=== PATIENT | female | born 1995 | race Caucasian/White ===

== ENCOUNTER → 2016-10-25 | Outpatient (CLI) | payer OTHER ==
--- NOTE | 2016-10-25 15:48 | DIAGNOSTIC IMAGING REPORT ---
MRI OF THE LUMBAR SPINE WITHOUT CONTRAST CLINICAL HISTORY: Persistent low back pain radiating down left lower extremity. Remote tailbone fracture. COMPARISON STUDY: No previous studies for comparison. TECHNIQUE: Utilizing a 1.5 Belen magnet and dedicated coil, multiplanar, multiecho imaging of the lumbar spine was performed without IV contrast. FINDINGS: For purposes of numbering on this exam, the L5-S1 disc space is assigned to axial image 27 of 30. Alignment of lumbar spine is anatomic. The conus terminates at the L1-L2 level. There is no intracanalicular mass or fluid collection. A 8 mm cystic abnormality along the posterior aspect of the left L4-L5 facet joint is of doubtful significance. Paravertebral soft tissues are otherwise normal. L1-2: The central canal and neural foramen are patent. L2-3: The central canal and neural foramen are patent L3-4: The central canal and neural foramen are patent. L4-5: The central canal and neural foramen are patent L5-S1: The central canal and neural foramen are patent. IMPRESSION: 1. Unremarkable MRI of the lumbar spine. No disc herniation. 2. Patent central canal and neural foramen. 3. No intracanalicular mass or fluid collection. Electronically signed by: Mariusz Liang M.D. 10/25/2016 3:47 PM Dictated Date/Time: 10/25/2016 3:42 PM
== END | disposition home or self-care (01) ==
LOC: C.MRI 14:51
PROVIDERS: ATTEND Internal Medicine
DX: M54.5 Low back pain (principal)

== ENCOUNTER 2017-10-17 22:40 | Emergency (ER) | payer OTHER ==
[~2017-10-17] VITALS: Ht 157.5 cm; Wt 63.6 kg
[2017-10-17 22:42] VITALS: Ht 157.5 cm; Wt 63.6 kg
[2017-10-17] MEDS ORDERED: KETOROLAC TROMETHAMINE 30 MG/ML VIAL IV STA (23:10)
[2017-10-17 23:52] LABS: ALBUMIN 4.1 gm/dl (3.4-5.0); ALT/SGPT 29 U/L (12-78); BLOOD UREA NITROGEN 15 mg/dl (7-18); CALCIUM 9.6 mg/dl (8.5-10.1); CARBON DIOXIDE 24 mmol/L (21-32); CREATININE 0.74 mg/dl (0.60-1.20); GLUCOSE 90 mg/dl (70-99); POTASSIUM 3.7 mmol/L (3.5-5.1); SODIUM 137 mmol/L (136-145)
[2017-10-17 23:55] LABS: ALKALINE PHOSPHATASE 97 U/L (45-117); AST/SGOT 17 U/L (15-37); TOTAL PROTEIN 8.4 gm/dl (6.4-8.2)
[2017-10-18 00:01] LABS: HEMATOCRIT 40.5 % (37-47); HEMOGLOBIN 13.4 g/dL (12.0-16.0); MEAN CELL VOLUME 84.7 fL (80-100); MEAN CORPUSCULAR HGB CONC 33.1 g/dl (32-36); RED CELL DISTRIBUTION WIDTH SD 40.2 fL (36.4-46.3); WHITE BLOOD COUNT 9.54 K/uL (4.8-10.8)
[2017-10-18] MEDS ORDERED: MONT1TAB5 PO (00:15)
[2017-10-18] MEDS ORDERED: VNTHFA/IN INH (00:15)
[2017-10-18] MEDS ORDERED: FLUO40CA8 PO (00:18)
[2017-10-18 00:25] LABS: BASO % 0.3 %; BASO ABS # 0.03 K/uL (0-0.2); EOS % 1.1 %; IG# 0.03 K/uL (0.00-0.02); LYMPH % 20.1 %; LYMPH ABS # 1.84 K/uL (1.2-3.4); MONO % 11.3 %; MONO ABS # 1.04 K/uL (0.11-0.59); NEUT % 66.9 %; NEUT ABS # 6.13 K/uL (1.4-6.5)
[2017-10-18 01:26] VITALS: TEMP 36.9
[2017-10-18 01:31] LABS: PLATELET COUNT 204 K/uL (130-400)
[2017-10-18 02:24] VITALS: BP 118/76; PULSE 76; O2SAT 98
--- NOTE | 2017-10-18 07:13 | EMERGENCY ROOM VISIT NOTE ---
History First contact with patient: 23:05 Chief Complaint: ABDOMINAL PAIN Stated Complaint: SEVERE CRAMPING,AB PAIN,POSS IUD Nursing Triage Summary: Patient states "I have really bad abdominal pain or maybe uterine pain. I got an IUD put in 2 weeks ago and they told me to expect some cramping but I don't know if this is from that. I've been bleeding like a period for a couple days too. I had blood in my urine a couple days ago too." History of Present Illness The patient is a 22 year old female who presents to the Emergency Room with complaints of spotting and cramping for the past week who an IUD placed 2 weeks ago by [employer] [facility]. She has had no prior pregnancies. Patient is sexually active. Patient denies risk for STI's, chest pain, dyspnea, back pain , flank pain, urinary symptoms, vaginal odor. She has had intercourse since the IUD was placed. Review of Systems An 10 system review of systems was completed with positives and pertinent negatives listed in the HPI. Past Medical/Surgical History Asthma, anxiety Social History Smoking Status: Never Smoker Alcohol Use: occasionally Drug Use: none Marital Status: in relationship Occupation Status: [employer] student Current/Historical Medications Scheduled Fluoxetine Hcl (Prozac), 1 CAP PO WK Montelukast Sodium (Montelukast Sodium), 1 TAB PO DAILY Scheduled PRN Albuterol Hfa (Ventolin Hfa), 2 PUFFS INH Q6H PRN for SOB/Wheezing Physical Exam Vital Signs Date Time Temp Pulse Resp B/P (MAP) Pulse Ox O2 Delivery O2 Flow Rate FiO2 10/18/17 02:24 76 18 118/76 98 10/18/17 01:26 36.9 87 18 110/65 99 Room Air 10/17/17 23:20 Room Air 10/17/17 22:42 36.7 104 18 126/73 97 Room Air Physical Exam VITALS: Vitals are noted on the nurse's note and reviewed by myself. Vital signs stable. GENERAL: Pleasant female, in no acute distress, nondiaphoretic, well-developed well-nourished. SKIN: Capillary reflex less than 2 seconds. HEENT: Normocephalic. PERRLA. EOMI. Nares patent. Mucous membranes moist. Neck is supple without nuchal rigidity. HEART: Regular rate and rhythm without murmurs gallops or rubs. LUNGS: Clear to auscultation bilaterally without wheezes, rales or rhonchi. No retractions or accessory muscle use. ABDOMEN: Positive bowel sounds x 4. Normal tympanic percussion. Soft, nontender, without masses or organomegaly. Potter sign negative. No guarding or rebound tenderness. No CVA tenderness MUSCULOSKELETAL: No gross musculoskeletal defects. NEURO: Patient was alert and oriented to person place and time. Normal sensation to light and sharp touch. No focal neurological deficits. Medical Decision & Procedures Laboratory Results 10/17/17 23:10 Red Blood Count 4.78, Mean Corpuscular Volume 84.7, Mean Corpuscular Hemoglobin 28.0, Mean Corpuscular Hemoglobin Concent 33.1, Neutrophils (%) (Auto) 66.9, Lymphocytes (%) (Auto) 20.1, Monocytes (%) (Auto) 11.3, Eosinophils (%) (Auto) 1.1, Basophils (%) (Auto) 0.3, Neutrophils # (Auto) 6.13, Lymphocytes # (Auto) 1.84, Monocytes # (Auto) 1.04, Eosinophils # (Auto) 0.10, Basophils # (Auto) 0.03 10/18/17 00:33 10/17/17 23:10 Test 10/17/17 23:05 10/17/17 23:10 Urine Color YELLOW Urine Appearance CLOUDY (CLEAR) Urine pH 5.0 (4.5-7.5) Urine Specific [employer] 1.033 (1.000-1.030) Urine Protein NEG (NEG) Urine Glucose (UA) NEG (NEG) Urine Ketones 1+ (NEG) Urine Occult Blood 2+ (NEG) Urine Nitrite NEG (NEG) Urine Bilirubin NEG (NEG) Urine Urobilinogen NEG (NEG) Urine Leukocyte Esterase SMALL (NEG) Urine WBC (Auto) 10-30 /hpf (0-5) Urine RBC (Auto) 5-10 /hpf (0-4) Urine Hyaline Casts (Auto) 5-10 /lpf (0-5) Urine Epithelial Cells (Auto) >30 /lpf (0-5) Urine Bacteria (Auto) NEG (NEG) Urine Test NEG (NEG) White Blood Count 9.54 K/uL (4.8-10.8) Red Blood Count 4.78 M/uL (4.2-5.4) Hemoglobin 13.4 g/dL (12.0-16.0) Hematocrit 40.5 % (37-47) Mean Corpuscular Volume 84.7 fL (80-100) Mean Corpuscular Hemoglobin 28.0 pg (25-34) Mean Corpuscular Hemoglobin Concent 33.1 g/dl (32-36) Platelet Count K/uL (130-400) Neutrophils (%) (Auto) 66.9 % Lymphocytes (%) (Auto) 20.1 % Monocytes (%) (Auto) 11.3 % Eosinophils (%) (Auto) 1.1 % Basophils (%) (Auto) 0.3 % Neutrophils # (Auto) 6.13 K/uL (1.4-6.5) Lymphocytes # (Auto) 1.84 K/uL (1.2-3.4) Monocytes # (Auto) 1.04 K/uL (0.11-0.59) Eosinophils # (Auto) 0.10 K/uL (0-0.5) Basophils # (Auto) 0.03 K/uL (0-0.2) RDW Standard Deviation 40.2 fL (36.4-46.3) RDW Coefficient of Variation 13.0 % (11.5-14.5) Immature Granulocyte % (Auto) 0.3 % Immature Granulocyte # (Auto) 0.03 K/uL (0.00-0.02) Anion Gap 8.0 mmol/L (3-11) Est Creatinine Clear Calc Drug Dose 102.7 ml/min Estimated GFR () 131.4 Estimated GFR (Non- 113.4 BUN/Creatinine Ratio 20.1 (10-20) Calcium Level 9.6 mg/dl (8.5-10.1) Total Bilirubin 0.1 mg/dl (0.2-1) Direct Bilirubin < 0.1 mg/dl (0-0.2) Aspartate Amino Transf (AST/SGOT) 17 U/L (15-37) Alanine Aminotransferase (ALT/SGPT) 29 U/L (12-78) Alkaline Phosphatase 97 U/L (45-117) Total Protein 8.4 gm/dl (6.4-8.2) Albumin 4.1 gm/dl (3.4-5.0) Medications Administered Medications (Trade) Dose Ordered Sig/Darius Route Start Time Stop Time Status Last Admin Dose Admin Ketorolac Tromethamine (Toradol Inj) 30 mg NOW STAT IV 10/17/17 23:10 10/17/17 23:12 DC 10/17/17 23:19 30 MG ED Course Prior records/ancillary studies reviewed. Triage Nursing notes reviewed. The patient's history was concerning for vaginal bleeding and abdominal pain. Differential diagnosis: Etiologies such as side effect of IUD, ectopic , dysfunction uterine bleeding, bleeding dyscrasia, trauma, infection, as well as others were entertained. Physical examination: As above. Vitals signs revealed stable ER treatment provided: patient was observed. On reassessment the patient felt better. Diagnostic interpretation by me: Labs were CBC, coagulation studies, and chemistries were unremarkable. Urine test was negative. Urine seems consistent with contamination, patient had no urinary symptoms Imaging studies: Ultrasound showed IUD with proper placement and right ovarian cyst per radiology This appears to be consistent with side effect of IUD and right ovarian cyst. Patient did not have an acute abdomen on exam. She is well-appearing. She was not . She is advised to follow-up with her SANITOR doctor this week or here in the ER sooner for heavy bleeding, pain, fevers, or worsening signs or symptoms or as needed. She is advised to repeat her pelvic ultrasound within 6 weeks for resolution of her cyst. By the evaluation outlined above emergent etiologies such as bleeding dyscrasia, ectopic , trauma, as well as others were deemed relatively unlikely. The pt informed about the findings as listed above. All questions were answered and pleased with the treatment. Return instructions were outlined and the patient was discharged in stable condition. Outpatient prescription management: Referral: The patient was referred to [facility] for follow-up in 2 to 3 days for a recheck of her current condition. Case reviewed with my attending Medical Decision As above Medication Reconcilliation Current Medication List: was personally reviewed by me Blood Pressure Screening Patient's blood pressure: Normal blood pressure Impression Primary Impression: Right ovarian cyst Departure Information Dispostion Home / Self-Care Condition GOOD Forms HOME CARE DOCUMENTATION FORM, IMPORTANT VISIT INFORMATION Patient Instructions Control IUD, My [facility], ED Cyst Ovarian Additional Instructions Recommend repeat pelvic ultrasound in 6 weeks for resolution of cyst. Rest. Stay well hydrated. No strenuous activity until symptoms resolve. Ibuprofen(Motrin, Advil) may be used for fever or pain. Use 600mg every six hours as needed. Take with food. Avoid using more than 2400mg in a 24 hour period. Do not use 2400mg per day for more than three consecutive days without physician direction. Prolonged inappropriate use can lead to stomach upset or ulcers. (AND/OR) Acetaminophen(Tylenol) may be used for fever or pain. Use 1000mg every six hours as needed. Avoid using more than 3000mg in a 24 hour period. Rest and drink plenty of fluids as tolerated. Continue current medications. Return to the ER immediately for severe pain, heavy vaginal bleeding, abdominal pain, vomiting, fevers, chest pains, difficulty breathing, worsening of your condition, or as needed. Follow up with your SANITOR in 2-3 days for a recheck of your current condition.
--- NOTE | 2017-10-18 08:32 | DIAGNOSTIC IMAGING REPORT ---
PELVIC COMPLETE NON OB, TRANSVAG-FEMALE PELVIS CLINICAL HISTORY: 22 years-old Female presenting with pain/bleeding, IUD placed 2 weeks ago, right lower quadrant pain, vaginal bleeding for 3 days, negative test. TECHNIQUE: Real-time grayscale and color and spectral Doppler ultrasound imaging of the pelvis was performed first using a transabdominal probe and subsequently transvaginal for better characterization. COMPARISON: None. FINDINGS: Uterus: An intrauterine device is appropriately positioned. Anteverted. The uterus measures 8.1 x 3.4 x 4.9 cm. Endometrial stripe measures 12 mm in thickness. Endometrium slightly heterogeneous and hypoechoic appearing, which likely relates to the phase of the menstrual cycle.. Cervix normal. Right adnexa: Right ovary contains a dominant follicle, which measures 2.3 x 1.8 x 2.0 cm. Right ovary measures 3.3 x 1.7 x 2.9 cm. Normal color Doppler flow and arterial and venous waveforms within the ovarian parenchyma. Left adnexa: Left ovary normal. Left ovary measures 3.0 x 1.5 x 1.7 cm. Normal color Doppler flow and arterial and venous waveforms within the ovarian parenchyma. Other: No free fluid. IMPRESSION: 1. No evidence of ovarian torsion. 2. Dominant right ovarian follicle. 3. Normal uterus containing an intrauterine device, which is appropriately positioned. Electronically signed by: Stephen Suazo M.D. 10/18/2017 8:30 AM Dictated Date/Time: 10/18/2017 8:28 AM
== END 2017-10-18 02:25 | disposition home or self-care (01) ==
LOC: C.EDB 22:42 → C.EDC 10-18 02:25
DX: N83.201 Unspecified ovarian cyst, right side (principal); Z97.5 Presence of (intrauterine) contraceptive device; J45.909 Unspecified asthma, uncomplicated; F41.9 Anxiety disorder, unspecified; Z79.899 Other long term (current) drug therapy